=== PATIENT | male | born 1940 | race Caucasian/White ===

== ENCOUNTER → 2021-03-24 | Outpatient (CLI) | payer MEDICARE ==
[~2021-03-24] MED LIST: ASPI-963 PO; CHOL10003 PO; FURO20TA3 PO; INSU100V8 SQ; LACT1CAP35 PO; LOSA25TA25 PO; METO-93 PO; MULT-658 PO; PRAV40TA2 PO; TAMS-11 PO; VANCOMYCIN PO; [UNRECOGNIZED DRUG - OTHER] PO
== END | disposition home or self-care (01) ==
LOC: CFH 11:20
PROVIDERS: ATTEND Student in an Organized Health Care Education/Training Program
DX: J90 Pleural effusion, not elsewhere classified (principal); J98.11 Atelectasis; I11.0 Hypertensive heart disease with heart failure; I50.32 Chronic diastolic (congestive) heart failure; E11.65 Type 2 diabetes mellitus with hyperglycemia; E78.2 Mixed hyperlipidemia; I25.10 Atherosclerotic heart disease of native coronary artery without angina pectoris; I42.9 Cardiomyopathy, unspecified; I44.2 Atrioventricular block, complete; I47.2 Ventricular tachycardia; I49.5 Sick sinus syndrome; Z95.0 Presence of cardiac pacemaker; Z95.1 Presence of aortocoronary bypass graft
CPT/HCPCS: 71046